=== PATIENT | female | born 1960 | race Caucasian/White ===

== ENCOUNTER 2022-01-31 13:36 | Emergency (ER) | payer OTHER ==
[~2022-01-31] VITALS: Ht 152.4 cm; Wt 89.0 kg
[~2022-01-31 13:36] MED LIST: CYCL10TA19 PO; HYDR-2761 PO; LEVO100T5 PO; LOSA1TAB25 PO; OMEP40CA2 PO; OXYC1TAB15 PO
[2022-01-31 14:04] VITALS: BP 171/85
--- NOTE | 2022-01-31 15:11 | RAD ---
Left tibia and fibula 2 views, left ankle 3 views. HISTORY: Pain after a fall Left tibia and fibula 2 views were taken of the left tibia and fibula. There is extensive soft tissue calcification in the calf. There is no fracture noted in the left tibia or fibula. Left ankle 3 views were taken of the left ankle. There is soft tissue swelling. There is no fracture or acute os seous abnormality. IMPRESSION: 1. Soft tissue swelling. 2. Soft tissue calcifications. 3. No fracture noted at the left ankle. 4. No fracture noted in the left tibia or fibula. Electronically signed by: Piero Cleaning MD (01/31/2022 3:09 PM) [facility]
--- NOTE | 2022-01-31 16:52 | PHYS DOC ---
Past Medical History Past Surgical History: No Surgical History Adult General Chief Complaint Chief Complaint: LOWER EXTREMITY SWELLING HPI HPI Patient is a 61 year old female who presents with left leg pain and bruising post fall. Patient states that she fell on Saturday, 5 days ago. She has had an increase in the development of bruising on the anterior aspect of her leg and knee as well as some mild swelling about the ankle. She is somewhat concerned about blood clots and underlying injury. She is able to ambulate with mild discomfort and does not have any numbness or tingling distally. No other injuries or complaints at this time. Review of Systems Review of Systems Constitutional: Denies fever Eyes: Denies change in visual acuity or eye pain HENT: Denies sore throat Respiratory: Denies shortness of breath Cardiovascular: Denies chest pain GI: Denies abd pain : Denies dysuria Musculoskeletal: Denies back pain or injury Integument: Denies rash or skin lesions Neurologic: Denies headache, focal weakness or sensory changes All other systems were reviewed and found to be within normal limits, except as documented in this note. Allergies Allergies Allergies Coded Allergies Type Severity Reaction Last Updated Verified codeine Allergy Intermediate 10/20/15 Yes morphine Adverse Reaction Intermediate Nausea and Vomiting 10/20/15 Yes Physical Exam Physical Exam Constitutional: Well developed, well nourished, no acute distress, non-toxic appearance. HENT: Normocephalic, atraumatic, bilateral external ears normal, mucosa moist, nose normal. Eyes: EOMI, conjunctiva normal, no discharge. Neck: Normal range of motion, supple, no stridor, no meningeal signs. Cardiovascular: Regular rate and rhythm Lungs & Thorax: Bilateral breath sounds clear to auscultation Abdomen: Soft, no tenderness or obvious masses Skin: Warm, dry, no erythema, no rash. Extremities: Bilateral tenderness on palpation over the patella, greater on the left. She has a 67 cm bruise on the anterior aspect of the left patella as well as several smaller bruises going down the entire anterior aspect of the leg. She does not have any erythema, palpable cord, swelling or tenderness posteriorly. Neurologic: Alert and oriented, normal motor function, normal sensory function, no focal deficits noted. Psychologic: Affect normal, judgement normal, mood normal. Current Patient Data Vital Signs Vital Signs Date Time Temp Pulse Resp B/P (MAP) Pulse Ox O2 Delivery O2 Flow Rate FiO2 3/23/22 14:04 97.5 96 18 171/85 (113) 96 Room Air 97.5 EKG EKG [] Radiology/Procedures Radiology/Procedures [] Impressions: PATIENT: DANIEL AMESOUNT: [id number]#: [id number] : 1960 LOCATION: ER AGE: 61 SEX: F EXAM STATUS: REG ER ORD. PHYSICIAN: JASMIN ORANTES MD REASON: fall PROCEDURE: ANKLE LEFT 3V Left tibia and fibula 2 views, left ankle 3 views. HISTORY: Pain after a fall Left tibia and fibula 2 views were taken of the left tibia and fibula. There is extensive soft tissue calcification in the calf. There is no fracture noted in the left tibia or fibula. Left ankle 3 views were taken of the left ankle. There is soft tissue swelling. There is no fracture or acute osseous abnormality. IMPRESSION: 1. Soft tissue swelling. 2. Soft tissue calcifications. 3. No fracture noted at the left ankle. 4. No fracture noted in the left tibia or fibula. Electronically signed by: Piero Cleaning MD (01/31/2022 3:09 PM) [facility] DICTATED and SIGNED BY: PIERO CLEANING MD DATE: 01/31/22 1504 Course & Med Decision Making Course & Med Decision Making Pertinent Labs and Imaging studies reviewed. (See chart for details) [] This is a 59-year-old female with bruising of the left leg post fall. There is no clinical evidence of DVT. X-rays of the tib-fib and ankle were negative for acute injury. Patient will be discharged home, she is in stable condition at this time. Dragon Disclaimer Dragon Disclaimer This electronic medical record was generated, in whole or in part, using a voice recognition dictation system. Departure Departure Impression: Primary Impression: Contusion of left lower leg Disposition: HOME / SELF CARE / HOMELESS Condition: STABLE Referrals: [facility] (PCP) Patient Instructions: Contusion JASMIN ORANTES MD Jan 31, 2022 16:51
== END 2022-01-31 16:50 | disposition home or self-care (01) ==
LOC: ER 13:36
DX: S80.12XA Contusion of left lower leg, initial encounter (principal); S80.02XA Contusion of left knee, initial encounter; Z88.5 Allergy status to narcotic agent; W18.39XA Other fall on same level, initial encounter; Y93.89 Activity, other specified; Y92.89 Other specified places as the place of occurrence of the external cause; Y99.8 Other external cause status
CPT/HCPCS: 73590; 73610; 99284